=== PATIENT | female | born 1940 | race Caucasian/White ===

== ENCOUNTER 2019-11-21 03:26 | Observation (INO) ==
[2019-11-21] MEDS ORDERED: Naloxone 0.4 MG/ML INJ IVP PRN (07:41)
[2019-11-21] MEDS ORDERED: Ondansetron ODT 4 MG TAB.RAPDIS SL PRN (07:41)
[2019-11-21] MEDS ORDERED: *HR* Metoprolol 5 MG/5 ML VIAL IVP ONE (09:03)
[2019-11-21] MEDS ORDERED: Nitroglycerin 0.4 MG TAB.SUBL SL PRN (09:08)
[2019-11-21] MEDS ORDERED: *HR* Heparin 5,000 UNIT/ML VIAL IVP PRN ×2 (09:09)
[2019-11-21] MEDS ORDERED: *HR* Heparin 5,000 UNIT/ML VIAL IVP ONE (09:09)
[2019-11-21] MEDS ORDERED: Albuterol 2.5 MG/3 ML NEBULIZER IH PRN (09:10)
[2019-11-21] MEDS ORDERED: D5% in Water 1,000 ML IVC PRN (09:12)
[2019-11-21] MEDS ORDERED: *HR* Dextrose 50 % in Water (Syg) 50 ML SYRINGE IVP PRN (09:12)
[2019-11-21] MEDS ORDERED: Dextrose Gel 15 GM/37.5 ML TUBE PO PRN ×2 (09:12)
[2019-11-21] MEDS ORDERED: Heparin 25,000 UNIT/250 ML D5W 25,000 UNIT/250 ML IV.SOLN IVC SCH (09:15)
[2019-11-21] MEDS: Metoprolol XL (24 HR) Succ 50 MG TAB.ER.24H PO SCH ×2 (11:17→22:12)
[2019-11-21] MEDS ORDERED: Ipratropium/Albuterol Neb 3 ML ONE (11:35)
[2019-11-21] MEDS: Ipratropium/Albuterol Neb 3 ML IH SCH ×2 (11:48→16:42)
[2019-11-21 11:49] LABS: Basophils % 0.6 %; Eosinophils # 0.1 K/mcL (0.0-0.6); Eosinophils % 1.4 %; Hematocrit 43.8 % (35.3-44.9); Immature Granulocytes % 0.8 % (0-4); Lymphocytes % 20.3 %; Mean Corpuscular Hemoglobin 30.8 pg (28.0-33.3); Mean Corpuscular Volume 96.3 fL (83.0-100.0); Monocytes # 0.3 K/mcL (0.0-1.3); Monocytes % 6.7 %; Neutrophils # 3.5 K/mcL (1.6-8.9); Platelet Count 171 K/mcL (140-400); Red Blood Count 4.55 M/mcL (3.82-4.97); Red Cell Distribution Width 14.9 % (11.5-14.5); Segmented Neutrophils % 70.2 %; White Blood Count 4.9 K/mcL (4.3-11.1)
[2019-11-21 11:56] LABS: Prothrombin Time 11.2 Seconds (9.4-12.1)
[2019-11-21 11:59] LABS: Activated Partial Thrombo Time 36.4 Seconds (26.0-36.0)
[2019-11-21] MEDS ORDERED: Ipratropium/Albuterol Neb 3 ML IH SCH (12:00)
[2019-11-21 12:13] LABS: Alanine Aminotransferase 11 Units/L (7-52); Albumin/Globulin Ratio 1.5 (1.1-2.2); Alkaline Phosphatase 50 Units/L (34-104); Aspartate Amino Transferase 18 Units/L (13-39); BUN/Creatinine Ratio 20 (6-26); Bilirubin,Total 0.7 mg/dL (0.3-1.0); Blood Urea Nitrogen 12 mg/dL (8-23); Calcium 9.5 mg/dL (8.6-10.3); Carbon Dioxide 37 mEq/L (23-29); Chloride 93 mEq/L (98-107); Globulin 2.7 g/dL (2.4-3.5); Glucose 110 mg/dL (70-105); Magnesium 2.1 mg/dL (1.6-2.6); Osmolality,Calculated 280 (280-300); Sodium 135 mEq/L (136-145); Total Protein 6.7 g/dL (6.4-8.9); Troponin I 0.03 ng/mL (< 0.04); eGFR For African Americans > 60 (> 60); eGFR For Non-African Americans > 60 (> 60)
[2019-11-21] MEDS: Insulin LISPRO 300 UNITS/3 ML VIAL SQ SCH ×2 (12:37→18:33)
[2019-11-21] MEDS: Aspirin Enteric Coated 81 MG Tablet PO SCH (12:59)
[2019-11-21] MEDS: predniSONE 20 MG TABLET PO SCH (12:59)
[2019-11-21] MEDS: Lisinopril-HCTZ 20-12.5mg TABLET PO SCH (12:59)
[2019-11-21] MEDS ORDERED: Ipratropium Neb 0.5 MG NEBULIZER ONE (16:14)
[2019-11-21] MEDS: Ipratropium Neb 0.5 MG NEBULIZER IH SCH ×2 (17:35→22:38)
[2019-11-21] MEDS: Apixaban 5 MG TABLET PO SCH (22:12)
[2019-11-21] MEDS ORDERED: tiZANidine 4 MG TABLET PO ONE (22:15)
[2019-11-22] MEDS ORDERED: Trolamine Salicylate/Aloe Vera 85 APPL/85 GM TUBE TP PRN (00:10)
[2019-11-22 02:09] LABS: Hematocrit 37.6 % (35.3-44.9); Mean Corpuscular HGB Conc 32.4 g/dL (31.6-35.5); Mean Corpuscular Hemoglobin 30.9 pg (28.0-33.3); Mean Corpuscular Volume 95.2 fL (83.0-100.0); Mean Platelet Volume 10.5 fL (9.4-12.4); Platelet Count 159 K/mcL (140-400); Red Blood Count 3.95 M/mcL (3.82-4.97); Red Cell Distribution Width 14.6 % (11.5-14.5); White Blood Count 4.6 K/mcL (4.3-11.1)
[2019-11-22 02:10] LABS: INR 1.3; Prothrombin Time 15.1 Seconds (9.4-12.1)
[2019-11-22 02:11] LABS: Hemoglobin 12.2 g/dL (11.5-15.4)
[2019-11-22 02:27] LABS: BUN/Creatinine Ratio 33 (6-26); Blood Urea Nitrogen 17 mg/dL (8-23); Calcium 9.2 mg/dL (8.6-10.3); Carbon Dioxide 30 mEq/L (23-29); Chloride 92 mEq/L (98-107); Glucose 124 mg/dL (70-105); Osmolality,Calculated 281 (280-300); Potassium 4.1 mEq/L (3.5-5.1); Sodium 134 mEq/L (136-145); eGFR For African Americans > 60 (> 60); eGFR For Non-African Americans > 60 (> 60)
[2019-11-22] MEDS: Ipratropium Neb 0.5 MG NEBULIZER IH SCH ×2 (03:49→08:29)
[2019-11-22] MEDS: Apixaban 5 MG TABLET PO SCH ×2 (10:34→22:48)
[2019-11-22] MEDS: Aspirin Enteric Coated 81 MG Tablet PO SCH (10:34)
[2019-11-22] MEDS: Insulin LISPRO 300 UNITS/3 ML VIAL SQ SCH (10:34)
[2019-11-22] MEDS: Lisinopril-HCTZ 20-12.5mg TABLET PO SCH (10:35)
[2019-11-22] MEDS: predniSONE 20 MG TABLET PO SCH (10:35)
[2019-11-22] MEDS: Metoprolol XL (24 HR) Succ 50 MG TAB.ER.24H PO SCH ×2 (10:35→22:47)
[2019-11-22] MEDS ORDERED: Ipratropium/Albuterol Neb 3 ML ONE (11:42)
[2019-11-22] MEDS: Ipratropium/Albuterol Neb 3 ML IH PRN (11:53)
[2019-11-22 12:50] LABS: Adenovirus Not Detected (Not Detect); Bordetella Pertussis Not Detected (Not Detect); Chlamydophila pneumoniae Not Detected (Not Detect); Coronavirus 229E Not Detected (Not Detect); Coronavirus HKU1 Not Detected (Not Detect); Coronavirus NL63 Not Detected (Not Detect); Coronavirus OC43 Not Detected (Not Detect); Human Metapneumovirus Not Detected (Not Detect); Human Rhinovirus/Enterovirus Not Detected (Not Detect); Influenza A Subtype 2009 H1 Not Detected (Not Detect); Influenza B Not Detected (Not Detect); Mycoplasma pneumoniae Not Detected (Not Detect); Parainfluenza Virus 1 Not Detected (Not Detect); Parainfluenza Virus 2 Not Detected (Not Detect); Parainfluenza Virus 3 Not Detected (Not Detect); Parainfluenza Virus 4 Not Detected (Not Detect); Respiratory Syncytial Virus Not Detected (Not Detect)
[2019-11-22] MEDS ORDERED: *HR* Labetalol 20 MG/4 ML SYRINGE IVP PRN (14:41)
[2019-11-22] MEDS ORDERED: *HR* Labetalol 20 MG/4 ML SYRINGE IVP ONE (14:42)
[2019-11-22] MEDS: Levalbuterol Neb 0.63 MG/3 ML IH SCH ×2 (16:18→20:54)
[2019-11-23] MEDS: Ipratropium/Albuterol Neb 3 ML IH PRN ×3 (02:42→20:13)
[2019-11-23] MEDS: Levalbuterol Neb 0.63 MG/3 ML IH SCH ×4 (04:50→23:42)
[2019-11-23 05:59] LABS: Hematocrit 40.6 % (35.3-44.9); Hemoglobin 12.8 g/dL (11.5-15.4); Mean Corpuscular HGB Conc 31.5 g/dL (31.6-35.5); Mean Corpuscular Hemoglobin 30.3 pg (28.0-33.3); Mean Corpuscular Volume 96.2 fL (83.0-100.0); Mean Platelet Volume 10.2 fL (9.4-12.4); Platelet Count 176 K/mcL (140-400); Red Blood Count 4.22 M/mcL (3.82-4.97); Red Cell Distribution Width 14.7 % (11.5-14.5); White Blood Count 6.2 K/mcL (4.3-11.1)
[2019-11-23 06:24] LABS: BUN/Creatinine Ratio 32 (6-26); Blood Urea Nitrogen 20 mg/dL (8-23); Calcium 9.7 mg/dL (8.6-10.3); Carbon Dioxide 40 mEq/L (23-29); Chloride 91 mEq/L (98-107); Glucose 108 mg/dL (70-105); Osmolality,Calculated 287 (280-300); Sodium 137 mEq/L (136-145); eGFR For African Americans > 60 (> 60); eGFR For Non-African Americans > 60 (> 60)
[2019-11-23] MEDS: Lisinopril-HCTZ 20-12.5mg TABLET PO SCH (10:27)
[2019-11-23] MEDS: Apixaban 5 MG TABLET PO SCH ×2 (10:27→21:53)
[2019-11-23] MEDS: predniSONE 20 MG TABLET PO SCH (10:27)
[2019-11-23] MEDS: Aspirin Enteric Coated 81 MG Tablet PO SCH (10:27)
[2019-11-23] MEDS: Metoprolol XL (24 HR) Succ 50 MG TAB.ER.24H PO SCH ×2 (10:28→21:53)
[2019-11-24 03:18] LABS: Hematocrit 41.1 % (35.3-44.9); Hemoglobin 13.3 g/dL (11.5-15.4); Mean Corpuscular HGB Conc 32.4 g/dL (31.6-35.5); Mean Corpuscular Volume 92.8 fL (83.0-100.0); Platelet Count 203 K/mcL (140-400); Red Blood Count 4.43 M/mcL (3.82-4.97); Red Cell Distribution Width 14.8 % (11.5-14.5); White Blood Count 7.8 K/mcL (4.3-11.1)
[2019-11-24] MEDS: Levalbuterol Neb 0.63 MG/3 ML IH SCH ×3 (03:26→15:46)
[2019-11-24 03:44] LABS: BUN/Creatinine Ratio 31 (6-26); Blood Urea Nitrogen 17 mg/dL (8-23); Calcium 9.5 mg/dL (8.6-10.3); Carbon Dioxide 37 mEq/L (23-29); Chloride 91 mEq/L (98-107); Glucose 114 mg/dL (70-105); Osmolality,Calculated 282 (280-300); Sodium 135 mEq/L (136-145); eGFR For African Americans > 60 (> 60); eGFR For Non-African Americans > 60 (> 60)
[2019-11-24] MEDS ORDERED: *HR* Heparin 5,000 UNIT/ML VIAL IVP ONE (08:48)
[2019-11-24] MEDS ORDERED: *HR* Heparin 5,000 UNIT/ML VIAL IVP PRN ×2 (08:48)
[2019-11-24] MEDS ORDERED: Heparin 25,000 UNIT/250 ML D5W 25,000 UNIT/250 ML IV.SOLN IVC SCH (09:00)
[2019-11-24] MEDS: Metoprolol XL (24 HR) Succ 50 MG TAB.ER.24H PO SCH ×2 (09:50→20:17)
[2019-11-24] MEDS: predniSONE 20 MG TABLET PO SCH (09:50)
[2019-11-24] MEDS: Lisinopril-HCTZ 20-12.5mg TABLET PO SCH (09:50)
[2019-11-24] MEDS: Aspirin Enteric Coated 81 MG Tablet PO SCH (09:50)
[2019-11-24] MEDS: Ipratropium/Albuterol Neb 3 ML IH PRN (11:45)
[2019-11-24] MEDS: Azithromycin 250 MG TABLET PO SCH (11:52)
[2019-11-24] MEDS ORDERED: Warfarin perPT PO PRN (18:00)
[2019-11-24] MEDS ORDERED: *HR* Warfarin 5 MG TABLET PO ONE (18:00)
[2019-11-24] MEDS: Ipratropium/Albuterol Neb 3 ML IH SCH ×2 (20:31→23:30)
[2019-11-25 01:16] LABS: INR 1.1; Prothrombin Time 12.2 Seconds (9.4-12.1)
[2019-11-25 01:21] LABS: Basophils % 0.1 %; Eosinophils % 0.1 %; Hematocrit 37.9 % (35.3-44.9); Hemoglobin 12.5 g/dL (11.5-15.4); Immature Granulocytes % 0.3 % (0-4); Lymphocytes # 1.7 K/mcL (0.6-4.6); Lymphocytes % 25.3 %; Mean Corpuscular Hemoglobin 30.1 pg (28.0-33.3); Mean Corpuscular Volume 91.3 fL (83.0-100.0); Monocytes # 0.5 K/mcL (0.0-1.3); Monocytes % 6.7 %; Neutrophils # 4.6 K/mcL (1.6-8.9); Platelet Count 203 K/mcL (140-400); Red Blood Count 4.15 M/mcL (3.82-4.97); Red Cell Distribution Width 14.6 % (11.5-14.5); Segmented Neutrophils % 67.5 %; White Blood Count 6.9 K/mcL (4.3-11.1)
[2019-11-25 01:42] LABS: BUN/Creatinine Ratio 47 (6-26); Blood Urea Nitrogen 23 mg/dL (8-23); Calcium 9.2 mg/dL (8.6-10.3); Carbon Dioxide 39 mEq/L (23-29); Chloride 92 mEq/L (98-107); Glucose 117 mg/dL (70-105); Osmolality,Calculated 285 (280-300); Sodium 135 mEq/L (136-145); eGFR For African Americans > 60 (> 60); eGFR For Non-African Americans > 60 (> 60)
[2019-11-25] MEDS: Ipratropium/Albuterol Neb 3 ML IH SCH ×4 (03:52→15:42)
[2019-11-25 07:21] VITALS: BP 165/90
[2019-11-25] MEDS: predniSONE 20 MG TABLET PO SCH (10:11)
[2019-11-25] MEDS: Aspirin Enteric Coated 81 MG Tablet PO SCH (10:12)
[2019-11-25] MEDS: Azithromycin 250 MG TABLET PO SCH (10:12)
[2019-11-25] MEDS: Metoprolol XL (24 HR) Succ 50 MG TAB.ER.24H PO SCH (10:12)
[2019-11-25] MEDS: Lisinopril-HCTZ 20-12.5mg TABLET PO SCH (10:16)
[2019-11-25] MEDS ORDERED: *HR* Enoxaparin 80 MG/0.8 ML SYRINGE SQ ONE (16:00)
[2019-11-25] MEDS ORDERED: *HR* Warfarin 5 MG TABLET PO ONE (18:00)
== END 2019-11-25 18:25 | disposition home or self-care (01) ==
LOC: 2NENU → SUATTDRO 03:28 → 2NENU 11-23 17:56
PROVIDERS: ADMIT Family Medicine; ATTEND Internal Medicine